=== PATIENT | female | born 1995 | race Two or more races ===

== ENCOUNTER 2016-05-06 18:16 | Emergency (ER) | payer SELFPAY ==
[~2016-05-06] VITALS: Ht 165.1 cm; Wt 68.0 kg
[2016-05-06 18:28] VITALS: BP 123/74
[2016-05-06] MEDS ORDERED: IBUPROFEN 600 MG TAB PO ONE (18:30)
[2016-05-06] MEDS ORDERED: cefTRIAXone SOD 1,000 MG VL IM ONE (20:00)
== END 2016-05-06 21:04 | disposition home or self-care (01) ==
LOC: ER 18:20
DX: J03.90 Acute tonsillitis, unspecified (principal)
CPT/HCPCS: 71020; 96372; 99284; J0696

== ENCOUNTER 2016-07-22 19:53 | Emergency (ER) | payer SELFPAY ==
[~2016-07-22] VITALS: Ht 157.5 cm; Wt 66.7 kg
[2016-07-22 20:18] VITALS: BP 115/73
[2016-07-23] MEDS ORDERED: KETOROLAC TROMETH 60MG/2ML VIAL IM ONE (00:15)
[2016-07-23] MEDS ORDERED: HYDROcodone-ACET 5/325MG TAB PO ONE (00:15)
== END 2016-07-23 00:28 | disposition home or self-care (01) ==
LOC: ER 19:53
DX: S13.4XXA Sprain of ligaments of cervical spine, initial encounter (principal); R07.9 Chest pain, unspecified; V43.52XA Car driver injured in collision with other type car in traffic accident, initial encounter; Y93.89 Activity, other specified; Y99.8 Other external cause status; Y92.89 Other specified places as the place of occurrence of the external cause
CPT/HCPCS: 71020; 72040; 81025; 96372; 99284; J1885; L0120